=== PATIENT | female | born 1950 | race Caucasian/White ===

== ENCOUNTER → 2017-08-10 | Outpatient (CLI) | payer MEDICARE ==
[~2017-08-10] MED LIST: REGADENOSON 0.4 MG/5 ML SYRINGE ONE
== END | disposition home or self-care (01) ==
LOC: RAD 11:34
PROVIDERS: ATTEND Internal Medicine Cardiovascular Disease
DX: I10 Essential (primary) hypertension (principal)
CPT/HCPCS: 78452; 93017; 93306; A9502; J2785

== ENCOUNTER 2018-10-01 17:05 | Inpatient (IN) | payer MEDICARE ==
[~2018-10-01] VITALS: Ht 160 cm; Wt 77.0 kg
[~2018-10-01 17:05] MED LIST changes: +ASPI-496 PO; +ASPI-650 PO; +ATOR20TA86 PO; +CALC1CAP8 PO; +CARV12.5 PO; +ENOX40SY4 SQ; +GLIM1TAB PO; +LEVO112T2 PO; +MECL12.52 PO; +ONDA4TAB13 PO; -REGADENOSON 0.4 MG/5 ML SYRINGE ONE; +VALS80TA30 PO; +VITA1TAB38 PO
--- NOTE | 2018-10-01 17:20 | NUR ---
BIB [facility] FROM HOME W/ CO INTERMITTENT DIZZINESS AND INTERMITTENT "PRESSURE BEHIND EYES"/VISION CHANGES. +NECK PAIN IMPROVED WITH HOT PACK PROVIDED TURNER OFF. FRIENDS ON SCENE REPORTED INCREASE IN CONFUSION X THREE DAYS. PT ARRIVES AWAKE/TALKATIVE AND AMBULATORY. A&OX4 THOUGH REPETATIVE W/ QUESTIONING. PT FACE SYMMETRICAL, SPEECH CLEAR; +STRENGTH X 4. DENIES CP/SOB/PRODUCTIVE COUGH/FEVER/PAINFUL URINATION. BP/SPO2/ECG MONITORING IN PLACE. IRREGULAR SINUS ON MONITOR W/ OCCASIONAL PVC. EKG COMPLETED UPON ARRIVAL. PT ADMITTED TO [facility] RECENTLY FOR SAME, PER PT. POA: YARED ([phone]) AND RAYNE ([phone])
[2018-10-01] MEDS ORDERED: SODIUM CHLORIDE FLUSH 10ML SYR IVF ONE (17:30)
[2018-10-01 17:53] LABS: INTERNATIONAL NORMALIZED RATIO 0.97 (0.93-1.1); PROTHROMBIN TIME 10.2 Seconds (9.6-11.5)
[2018-10-01 17:54] LABS: ALBUMIN 3.5 g/dL (3.4-5.0); ANION GAP 9 mmol/L (5-15); CALCIUM 8.6 mg/dL (8.5-10.1); CHLORIDE 107 mmol/L (98-107); CREATININE 1.27 mg/dL (0.55-1.02)
[2018-10-01 17:58] LABS: TROPONIN I < 0.015 ng/mL (0.000-0.045)
[2018-10-01 18:00] LABS: BASOPHILS # (AUTO) 0.03 x10^3/uL (0-0.1); BASOPHILS % (AUTO) 0 % (0-1); EOSINOPHILS % (AUTO) 1 % (1-7); LYMPHOCYTES # (AUTO) 2.38 x10^3/uL (1-3.4); LYMPHOCYTES % (AUTO) 34 % (22-44); MD NO; MEAN CORPUSCULAR HEMOGLOBIN 33.2 pg (27.0-34.8); MEAN CORPUSCULAR HGB CONC 33.2 g/dL (32.4-35.8); MEAN PLATELET VOLUME 7.4 fL (7.4-10.4); MONOCYTES # (AUTO) 0.49 x10^3/uL (0.2-0.8); MONOCYTES % (AUTO) 7 % (2-9); NEUTROPHILS # (AUTO) 3.96 x10^3/uL (1.8-6.8); NEUTROPHILS % (AUTO) 57 % (42-75); PLATELET COUNT 248 x10^3/uL (130-400); RED BLOOD COUNT 4.16 x10^6/uL (3.82-5.3); RED CELL DISTRIBUTION WIDTH 13.8 % (9.6-15.2)
[2018-10-01] MEDS ORDERED: OMNIPAQUE 350 MG/ML, 100ML BOTTLE ONE (18:00)
--- NOTE | 2018-10-01 18:03 | NUR ---
BREAK RN - PT RESTING ON Backlift. SIDERAILS UP X 2. CALL LIGHT IN REACH. ALL CONCERNS ADRESSED. NADN. PT AWATING CTA.
--- NOTE | 2018-10-01 18:49 | NUR ---
PT AMBULATED STEADILY TO BATHROOM TO PROVIDE UA
--- NOTE | 2018-10-01 18:56 | NUR ---
REPORT TO JONO KUMAR
--- NOTE | 2018-10-01 19:01 | NUR ---
ASSUMED CARE OF PT. PT RESTING. SLIGHTLY CONFUSED TO WHAT THE NEXT PROCESS IS AND WHAT THEY ARE GOING TO DO ABOUT HER "STROKE". EXPLAINED PLAN OF CARE.
[2018-10-01 19:05] LABS: MICROSCOPIC NOT IND
[2018-10-01 19:13] LABS: CULTURE INDICATED? NO
[2018-10-01 20:07] VITALS: BP 146/69
[2018-10-01] MEDS: INSULIN LISPRO 100 UNITS/ML, PEN SQ-INSULIN SCH (21:00)
[2018-10-01] MEDS ORDERED: DIPHENHYDRAMINE 25 MG CAPSULE PO PRN (21:00)
[2018-10-01] MEDS: NICOTINE 7 MG/24 HR PATCH.TD24 TD SCH (21:00)
[2018-10-01] MEDS ORDERED: LIDODERM 5% PATCH TD PRN (21:00)
[2018-10-01] MEDS ORDERED: DOCUSATE 100 MG CAPSULE PO PRN (21:00)
[2018-10-01] MEDS: ENOXAPARIN 40 MG/0.4 ML SQ SCH (21:24)
[2018-10-01] MEDS: SODIUM CHLORIDE 0.9% 1,000 ML IV SCH (21:25)
[2018-10-01] MEDS ORDERED: MECLIZINE 12.5 MG TABLET PO PRN (21:30)
[2018-10-02 01:50] VITALS: BP 150/79
[2018-10-02] MEDS: LEVOTHYROXINE 112 MCG TABLET PO SCH (05:08)
[2018-10-02] MEDS: ASPIRIN 325 MG TABLET EC PO SCH (05:08)
[2018-10-02 05:42] LABS: BASOPHILS # (AUTO) 0.04 x10^3/uL (0-0.1); BASOPHILS % (AUTO) 1 % (0-1); EOSINOPHILS # (AUTO) 0.07 x10^3/uL (0-0.4); EOSINOPHILS % (AUTO) 1 % (1-7); LYMPHOCYTES # (AUTO) 2.63 x10^3/uL (1-3.4); LYMPHOCYTES % (AUTO) 43 % (22-44); MD NO; MEAN CORPUSCULAR HEMOGLOBIN 32.5 pg (27.0-34.8); MEAN CORPUSCULAR HGB CONC 32.3 g/dL (32.4-35.8); MEAN CORPUSCULAR VOLUME 100.6 fL (80-100); MEAN PLATELET VOLUME 7.3 fL (7.4-10.4); MONOCYTES # (AUTO) 0.46 x10^3/uL (0.2-0.8); MONOCYTES % (AUTO) 8 % (2-9); NEUTROPHILS # (AUTO) 2.89 x10^3/uL (1.8-6.8); NEUTROPHILS % (AUTO) 47 % (42-75); PLATELET COUNT 202 x10^3/uL (130-400); RED BLOOD COUNT 3.94 x10^6/uL (3.82-5.3); RED CELL DISTRIBUTION WIDTH 13.7 % (9.6-15.2)
[2018-10-02 06:03] LABS: ANION GAP 9 mmol/L (5-15); CALCIUM 8.2 mg/dL (8.5-10.1); CHLORIDE 110 mmol/L (98-107)
[2018-10-02 06:53] VITALS: BP 145/93
[2018-10-02] MEDS: INSULIN LISPRO 100 UNITS/ML, PEN SQ-INSULIN SCH ×4 (07:00→20:19)
[2018-10-02] MEDS: SODIUM CHLORIDE 0.9% 1,000 ML IV SCH ×2 (07:39→23:33)
[2018-10-02] MEDS: CHOLECALCIFEROL 1,000 UNIT TABLET PO SCH (07:39)
[2018-10-02 07:55] LABS: ALBUMIN 3.1 g/dL (3.4-5.0); BILIRUBIN, DIRECT 0.2 mg/dL (0.1-0.2)
[2018-10-02 07:57] LABS: BILIRUBIN,INDIRECT 0.5 mg/dL (0.0-2.0); BILIRUBIN,TOTAL 0.7 mg/dL (0.2-1.0); TOTAL PROTEIN 6.1 g/dL (6.4-8.2)
[2018-10-02 07:58] LABS: AMPHETAMINE SCREEN, URINE Negative (Negative); BARBITURATE SCREEN, URINE Negative (Negative); BENZODIAZEPINE SCREEN, URINE Negative (Negative); CANNABINOID SCREEN, URINE Negative (Negative); COCAINE SCREEN, URINE Negative (Negative); METHADONE SCREEN, URINE Negative (Negative); OPIATE SCREEN, URINE Negative (Negative)
[2018-10-02] MEDS ORDERED: VITAMIN K2 PO SCH (09:00)
[2018-10-02] MEDS ORDERED: [UNRECOGNIZED DRUG - OTHER] PO SCH (09:00)
[2018-10-02] MEDS ORDERED: VITAMIN D3 PO SCH (09:00)
[2018-10-02 13:23] VITALS: BP 148/68
[2018-10-02] MEDS ORDERED: OMNIPAQUE 350 MG/ML, 100ML BOTTLE ONE (14:44)
[2018-10-02] MEDS: ENOXAPARIN 40 MG/0.4 ML SQ SCH (20:20)
[2018-10-02] MEDS: NICOTINE 7 MG/24 HR PATCH.TD24 TD SCH (20:20)
[2018-10-02 21:16] VITALS: BP 169/96
[2018-10-02 21:25] VITALS: BP 144/83
[2018-10-03 00:34] VITALS: BP 141/83
[2018-10-03] MEDS: ACETAMINOPHEN 325 MG TABLET PO PRN (03:48)
[2018-10-03 05:11] LABS: BASOPHILS # (AUTO) 0.03 x10^3/uL (0-0.1); BASOPHILS % (AUTO) 0 % (0-1); EOSINOPHILS # (AUTO) 0.07 x10^3/uL (0-0.4); EOSINOPHILS % (AUTO) 1 % (1-7); LYMPHOCYTES # (AUTO) 2.24 x10^3/uL (1-3.4); LYMPHOCYTES % (AUTO) 35 % (22-44); MD NO; MEAN CORPUSCULAR HEMOGLOBIN 33.1 pg (27.0-34.8); MEAN CORPUSCULAR HGB CONC 33.1 g/dL (32.4-35.8); MEAN CORPUSCULAR VOLUME 99.9 fL (80-100); MEAN PLATELET VOLUME 6.9 fL (7.4-10.4); MONOCYTES # (AUTO) 0.44 x10^3/uL (0.2-0.8); MONOCYTES % (AUTO) 7 % (2-9); NEUTROPHILS # (AUTO) 3.69 x10^3/uL (1.8-6.8); NEUTROPHILS % (AUTO) 57 % (42-75); PLATELET COUNT 232 x10^3/uL (130-400); RED BLOOD COUNT 4.06 x10^6/uL (3.82-5.3); RED CELL DISTRIBUTION WIDTH 13.6 % (9.6-15.2)
[2018-10-03] MEDS: LEVOTHYROXINE 112 MCG TABLET PO SCH (05:22)
[2018-10-03] MEDS: ASPIRIN 325 MG TABLET EC PO SCH (05:22)
[2018-10-03 05:24] LABS: ANION GAP 4 mmol/L (5-15); CALCIUM 8.8 mg/dL (8.5-10.1); CHLORIDE 112 mmol/L (98-107); CREATININE 1.01 mg/dL (0.55-1.02)
[2018-10-03 06:54] VITALS: BP 159/72
[2018-10-03] MEDS: INSULIN LISPRO 100 UNITS/ML, PEN SQ-INSULIN SCH ×4 (07:00→20:53)
[2018-10-03] MEDS: CHOLECALCIFEROL 1,000 UNIT TABLET PO SCH (09:06)
[2018-10-03] MEDS: SODIUM CHLORIDE 0.9% 1,000 ML IV SCH (09:06)
[2018-10-03 12:27] VITALS: BP 143/71
[2018-10-03 19:15] VITALS: BP 138/78
[2018-10-03] MEDS: ENOXAPARIN 40 MG/0.4 ML SQ SCH (20:54)
[2018-10-03] MEDS: NICOTINE 7 MG/24 HR PATCH.TD24 TD SCH (20:54)
[2018-10-03] MEDS: ATORVASTATIN 80 MG TABLET PO SCH (20:55)
[2018-10-04 00:41] VITALS: BP 156/89
[2018-10-04] MEDS: ASPIRIN 81 MG TABLET EC PO SCH (05:25)
[2018-10-04] MEDS: LEVOTHYROXINE 112 MCG TABLET PO SCH (05:25)
[2018-10-04] MEDS: INSULIN LISPRO 100 UNITS/ML, PEN SQ-INSULIN SCH ×4 (07:00→21:00)
[2018-10-04 07:05] VITALS: BP 176/83
[2018-10-04] MEDS: CHOLECALCIFEROL 1,000 UNIT TABLET PO SCH (07:58)
[2018-10-04] MEDS: CLOPIDOGREL 75 MG TABLET PO SCH (07:58)
[2018-10-04] MEDS: ACETAMINOPHEN 325 MG TABLET PO PRN (07:58)
[2018-10-04 10:51] VITALS: BP 123/79
[2018-10-04 13:20] VITALS: BP 153/81
[2018-10-04] MEDS ORDERED: CLOP75TA PO (14:32)
[2018-10-04] MEDS ORDERED: ATOR-2 PO (14:32)
[2018-10-04] MEDS ORDERED: ASPI81TA45 PO (14:32)
[2018-10-04 18:59] VITALS: BP 131/73
[2018-10-04] MEDS: NICOTINE 7 MG/24 HR PATCH.TD24 TD SCH (20:45)
[2018-10-04] MEDS: ENOXAPARIN 40 MG/0.4 ML SQ SCH (20:45)
[2018-10-04] MEDS: ATORVASTATIN 80 MG TABLET PO SCH (20:45)
[2018-10-05 00:30] VITALS: BP 147/90
[2018-10-05] MEDS: ASPIRIN 81 MG TABLET EC PO SCH (05:27)
[2018-10-05] MEDS: LEVOTHYROXINE 112 MCG TABLET PO SCH (05:27)
[2018-10-05] MEDS: INSULIN LISPRO 100 UNITS/ML, PEN SQ-INSULIN SCH ×2 (07:00→11:00)
[2018-10-05 07:45] VITALS: BP 163/77
[2018-10-05] MEDS: CHOLECALCIFEROL 1,000 UNIT TABLET PO SCH (08:51)
[2018-10-05] MEDS: CLOPIDOGREL 75 MG TABLET PO SCH (08:51)
[2018-10-05 13:25] VITALS: BP 123/75
== END 2018-10-05 15:05 | DRG 64 ==
LOC: ED 17:24 → EDIP 19:12 → 4WST 19:49
PROVIDERS: ADMIT Internal Medicine; ATTEND Internal Medicine
DX: I63.9 Cerebral infarction, unspecified (principal); G93.41 Metabolic encephalopathy; N17.9 Acute kidney failure, unspecified; H54.7 Unspecified visual loss; E03.9 Hypothyroidism, unspecified; R62.7 Adult failure to thrive; E11.9 Type 2 diabetes mellitus without complications; F17.210 Nicotine dependence, cigarettes, uncomplicated; I10 Essential (primary) hypertension; Z80.9 Family history of malignant neoplasm, unspecified; Z82.49 Family history of ischemic heart disease and other diseases of the circulatory system; Z90.710 Acquired absence of both cervix and uterus; Z88.8 Allergy status to other drugs, medicaments and biological substances; Z71.6 Tobacco abuse counseling
CPT/HCPCS: 36415; 70450; 70496; 70498; 70551; 80048; 80076; 80307; 81003; 82040; 82140; 82962; 84484; 85025; 85610; 85730; 93005; 93306; 99285; G0378; J1650; Q9967; 92522-GN; J7030

== ENCOUNTER 2018-10-23 17:41 | Emergency (ER) | payer MEDICARE ==
[~2018-10-23] VITALS: Ht 157.5 cm; Wt 77.0 kg
[~2018-10-23 17:41] MED LIST changes: +ASPI81TA45 PO; +ATOR-2 PO; +CLOP75TA PO
[2018-10-23] MEDS ORDERED: MECLIZINE CHEWABLE 25 MG TAB PO ONE (18:30)
--- NOTE | 2018-10-23 18:46 | NUR ---
PT HAS BEEN EXPERIENCING INCREASED DIZZINESS OVER THE LAST WEEKS. PT AMBULATED TO BATHROOM WITH ASSISTANCE, WOBBLY AND DIZZY. AFTER LABS DRAWN PT TO CT
[2018-10-23 18:53] LABS: BASOPHILS # (AUTO) 0.03 x10^3/uL (0-0.1); BASOPHILS % (AUTO) 0 % (0-1); EOSINOPHILS # (AUTO) 0.11 x10^3/uL (0-0.4); EOSINOPHILS % (AUTO) 2 % (1-7); LYMPHOCYTES # (AUTO) 2.47 x10^3/uL (1-3.4); LYMPHOCYTES % (AUTO) 33 % (22-44); MD NO; MEAN CORPUSCULAR HEMOGLOBIN 32.7 pg (27.0-34.8); MEAN CORPUSCULAR HGB CONC 32.7 g/dL (32.4-35.8); MEAN PLATELET VOLUME 6.9 fL (7.4-10.4); MONOCYTES # (AUTO) 0.44 x10^3/uL (0.2-0.8); MONOCYTES % (AUTO) 6 % (2-9); NEUTROPHILS # (AUTO) 4.44 x10^3/uL (1.8-6.8); NEUTROPHILS % (AUTO) 59 % (42-75); PLATELET COUNT 260 x10^3/uL (130-400); RED BLOOD COUNT 4.24 x10^6/uL (3.82-5.3); RED CELL DISTRIBUTION WIDTH 13.4 % (9.6-15.2)
[2018-10-23 19:02] LABS: ALBUMIN 3.6 g/dL (3.4-5.0); ANION GAP 7 mmol/L (5-15); CALCIUM 8.7 mg/dL (8.5-10.1); CHLORIDE 111 mmol/L (98-107); CREATININE 1.11 mg/dL (0.55-1.02)
[2018-10-23 19:06] LABS: TROPONIN I < 0.015 ng/mL (0.000-0.045)
[2018-10-23 19:14] LABS: CULTURE INDICATED? YES; MICROSCOPIC AUTO
[2018-10-23] MEDS ORDERED: MECLIZINE CHEWABLE 25 MG TAB ONE (19:16)
--- NOTE | 2018-10-23 20:00 | NUR ---
UOB TO BATHROOM. PT GAIT IMPROVED WITH LESS DIZZINESS THAN WHEN SHE ARRIVED
[2018-10-23 20:34] VITALS: BP 136/62
--- NOTE | 2018-10-23 21:05 | NUR ---
PT GIVEN DISCHARGE INSTRUCTIONS INCLUDING STRESSING HOW IMPORTANT IT IS FOR HER TO TAKE NEW MEDICATION AND TO CALL ENT REFERRAL TOMORROW.
== END 2018-10-23 21:07 | disposition home or self-care (01) ==
LOC: ED 19:36
DX: H81.391 Other peripheral vertigo, right ear (principal); H83.01 Labyrinthitis, right ear; I10 Essential (primary) hypertension; E11.9 Type 2 diabetes mellitus without complications; Z86.73 Personal history of transient ischemic attack (TIA), and cerebral infarction without residual deficits; Z90.710 Acquired absence of both cervix and uterus
CPT/HCPCS: 36415; 70450; 80048; 81001; 82040; 84484; 85025; 87086; 87147; 93005; 99284